=== PATIENT | female | born 1955 | race Caucasian/White ===

== ENCOUNTER 2019-06-12 18:41 | Inpatient (IN) ==
[2019-06-12 19:09] LABS: Basophils # 0.1 10*3/uL (0.0-0.2); Basophils % 0.4 % (0.0-0.8); Eosinophils # 0.1 10*3/uL (0.0-0.87); Eosinophils % 0.8 % (0.00-10.9); Hematocrit 44.7 VOL% (35.7-47.0); Hemoglobin 14.3 GM/DL (12.0-16.0); Immature Granulocytes % 0.2 %; Immature Granulocytes Absolute 0.03 #; Lymphocytes # 3.6 10*3/uL (1.4-4.0); Lymphocytes % 27.3 % (21.3-54.2); Mean Corpuscular Volume 92.2 FL (87-102); Mean Platelet Volume 9.5 FL (9.6-12.0); Monocytes % 7.1 % (1.7-12.7); Neutrophils % 64.2 % (38.7-73.9); Platelet Count 331 T/CUMM (130-400); Red Blood Count 4.85 MC/CUMM (3.8-5.5); Red Cell Distribution Width 13.2 % (9.3-17.3)
[2019-06-12 19:24] LABS: INR 0.9; Partial Thromboplastin Time 26.4 SECS (20.8-36.0)
[2019-06-12 19:34] LABS: Albumin 4.1 G/DL (3.4-5.0); Bilirubin,Total 0.5 MG/DL (0.2-1.0); Calcium 10.3 MG/DL (8.5-10.1); Osmolality,Calculated 277.7 MOS/KG (273-304); Total Protein 8.5 G/DL (6.4-8.3)
[2019-06-12] MEDS ORDERED: NITROGLYCERIN SL 0.4 MG TABLET SL STA (20:14)
[2019-06-12] MEDS ORDERED: ASPIRIN CHEW 81 MG TABLET PO STA (20:16)
[2019-06-12] MEDS ORDERED: ALUM/MAG/SIMETH/LIDO VISC 1:1 30 ML BOTTLE PO STA (20:57)
[2019-06-12] MEDS ORDERED: methylPREDNISolone SOD SUC 125 MG/2 ML VIAL IV STA (21:39)
[2019-06-12] MEDS ORDERED: MORPHINE 4 MG/1 ML VIAL IV STA (21:39)
[2019-06-12] MEDS ORDERED: ONDANSETRON 4 MG/2 ML VIAL IV ONE (21:39)
[2019-06-12] MEDS ORDERED: KETOROLAC 30 MG/1 ML VIAL IV STA (22:36)
[2019-06-12] MEDS ORDERED: PANTOPRAZOLE 40 MG VIAL IV STA (22:37)
[2019-06-12 23:17] LABS: Apearance,Urine Slightly Hazy (Clear); Bilirubin,Urine Negative (Negative); Blood, Urine Small mg/dL (Negative); Glucose,Urine (UA) Negative (Negative); Ketones,Urine Negative (Negative); Mucus,Urine Occasional /LPF (Occasional); Nitrite,Urine Negative (Negative); Protein,Urine Negative; RBC,Urine 17 /HPF (0-4); Squamous Epithelial Cell,Urine Occasional /HPF (0-10); Urine Color Yellow (Yellow); Urine Specific Gravity 1.042 (1.001-1.035); Urine Urobilinogen < 2.0 EU/DL (0.2-1.0); WBC,Urine 3 /HPF (0-6)
[2019-06-13] MEDS ORDERED: MORPHINE 4 MG/1 ML VIAL IV PRN (00:57)
[2019-06-13] MEDS ORDERED: ONDANSETRON 4 MG/2 ML VIAL IV PRN (02:46)
[2019-06-13] MEDS ORDERED: DOCUSATE SODIUM 100 MG CAPSULE PO PRN (02:46)
[2019-06-13] MEDS ORDERED: ALBUTEROL/IPRATROPIUM 3 ML NEB RESP TX PRN (02:46)
[2019-06-13] MEDS ORDERED: ACETAMINOPHEN 325 MG TABLET PO PRN (02:46)
[2019-06-13] MEDS ORDERED: PROMETHAZINE 25 MG/1 ML VIAL IM PRN (02:46)
[2019-06-13] MEDS: KETOROLAC 15 MG/1 ML VIAL IV SCH ×2 (03:35→08:30)
[2019-06-13] MEDS: SODIUM CHLORIDE 0.9% 1,000 ML IV SCH ×2 (03:39→23:46)
[2019-06-13 05:41] LABS: Basophils % 0.1 % (0.0-0.8); Hematocrit 42.2 VOL% (35.7-47.0); Hemoglobin 13.5 GM/DL (12.0-16.0); Immature Granulocytes % 0.9 %; Immature Granulocytes Absolute 0.16 #; Lymphocytes # 1.1 10*3/uL (1.4-4.0); Lymphocytes % 6.3 % (21.3-54.2); Mean Corpuscular Volume 91.5 FL (87-102); Mean Platelet Volume 9.9 FL (9.6-12.0); Monocytes % 4.6 % (1.7-12.7); Neutrophils % 88.1 % (38.7-73.9); Platelet Count 291 T/CUMM (130-400); Red Blood Count 4.61 MC/CUMM (3.8-5.5); Red Cell Distribution Width 13.2 % (9.3-17.3); White Blood Count 17.6 T/CUMM (4-12)
[2019-06-13 06:33] LABS: Calcium 9.7 MG/DL (8.5-10.1); Osmolality,Calculated 281.7 MOS/KG (273-304); Risk Ratio 3.56; Thyroid Stimulating Hormone 0.659 uIU/ml (0.358-3.74)
[2019-06-13] MEDS: PANTOPRAZOLE 40 MG TABLET PO SCH (08:48)
[2019-06-13] MEDS ORDERED: PANTOPRAZOLE 40 MG VIAL IV SCH (09:00)
[2019-06-13] MEDS ORDERED: COLCHICINE 0.6 MG CAPSULE PO SCH (10:00)
[2019-06-13] MEDS: INSULIN REGULAR 100 UNIT/ML SUBCUT SCH ×3 (13:13→21:14)
[2019-06-13] MEDS: IBUPROFEN 400 MG TABLET PO SCH ×2 (14:36→21:14)
[2019-06-13] MEDS: ALUMINUM/MAGNES/SIMETH MAX STR 30 ML UDCUP PO PRN (18:00)
[2019-06-13] MEDS ORDERED: ROSUVASTATIN 20 MG TABLET PO SCH (21:00)
[2019-06-14 05:20] LABS: Basophils % 0.2 % (0.0-0.8); Eosinophils % 0.1 % (0.00-10.9); Hematocrit 39.1 VOL% (35.7-47.0); Hemoglobin 12.6 GM/DL (12.0-16.0); Immature Granulocytes % 0.5 %; Immature Granulocytes Absolute 0.09 #; Lymphocytes # 2.8 10*3/uL (1.4-4.0); Lymphocytes % 14.8 % (21.3-54.2); Mean Corpuscular HGB Conc 32.2 GM/DL (32-36); Mean Corpuscular Volume 91.4 FL (87-102); Mean Platelet Volume 10.3 FL (9.6-12.0); Monocytes % 7.1 % (1.7-12.7); Neutrophils % 77.3 % (38.7-73.9); Platelet Count 298 T/CUMM (130-400); Red Blood Count 4.28 MC/CUMM (3.8-5.5); Red Cell Distribution Width 13.8 % (9.3-17.3); White Blood Count 19.1 T/CUMM (4-12)
[2019-06-14] MEDS: ALUMINUM/MAGNES/SIMETH MAX STR 30 ML UDCUP PO PRN (05:25)
[2019-06-14] MEDS ORDERED: COLCHICINE 0.6 MG CAPSULE PO ONE (05:33)
[2019-06-14] MEDS ORDERED: IBUPROFEN 600 MG TABLET PO ONE (05:34)
[2019-06-14] MEDS ORDERED: ALPRAZolam 0.5 MG TABLET PO PRN (05:35)
[2019-06-14 06:03] LABS: Calcium 9.1 MG/DL (8.5-10.1); Osmolality,Calculated 284.3 MOS/KG (273-304)
[2019-06-14 08:21] VITALS: BP 123/68
[2019-06-14] MEDS: PANTOPRAZOLE 40 MG TABLET PO SCH (08:28)
[2019-06-14] MEDS: INSULIN REGULAR 100 UNIT/ML SUBCUT SCH ×2 (08:29→11:51)
[2019-06-14] MEDS ORDERED: ASPIRIN EC 81 MG TABLET PO SCH (09:00)
[2019-06-14 11:51] LABS: Basophils % 0.2 % (0.0-0.8); Eosinophils # 0.1 10*3/uL (0.0-0.87); Eosinophils % 0.6 % (0.00-10.9); Hematocrit 35.9 VOL% (35.7-47.0); Hemoglobin 11.8 GM/DL (12.0-16.0); Immature Granulocytes % 0.4 %; Immature Granulocytes Absolute 0.06 #; Lymphocytes # 2.7 10*3/uL (1.4-4.0); Mean Corpuscular HGB Conc 32.9 GM/DL (32-36); Mean Corpuscular Volume 90.7 FL (87-102); Monocytes % 7.5 % (1.7-12.7); Neutrophils % 74.3 % (38.7-73.9); Platelet Count 249 T/CUMM (130-400); Red Blood Count 3.96 MC/CUMM (3.8-5.5); Red Cell Distribution Width 13.8 % (9.3-17.3); White Blood Count 15.8 T/CUMM (4-12)
[2019-06-14] MEDS ORDERED: IBUPROFEN 400 MG TABLET PO SCH (12:00)
[2019-06-15] MEDS ORDERED: COLCHICINE 0.6 MG CAPSULE PO SCH (09:00)
== END 2019-06-14 14:28 | disposition home or self-care (01) | DRG 316 ==
LOC: N.EDINP 18:41 → N.ED 18:41 → N.TELEN 06-13 01:32 → SUATTDRO 06-13 11:20
PROVIDERS: ADMIT Internal Medicine; ATTEND Internal Medicine